=== PATIENT | male | born 1935 | race Caucasian/White ===

== ENCOUNTER 2020-12-17 09:05 | Outpatient (CLI) | payer MEDICARE, OTHER, SELFPAY ==
--- NOTE | 2020-12-17 09:23 | MR_ITS ---
WS: [id number] MRI HEAD WITHOUT CONTRAST TECHNIQUE: Sagittal T1, T2 axial, T2 axial FLAIR, axial and coronal T1 images, axial susceptibility w eighted imaging, axial diffusion weighted images, and coronal T2 images were obtained. CLINICAL INFORMATION: CONFUSION/VISUAL HALLUCINATIONS COMPARISON: None. FINDINGS: No evidence of restricted diffusion to suggest acute ischemia. Small amount of T2 shine through in th e left centrum semiovale. Moderate small vessel changes with moderate parenchymal volume loss. Multip le chronic lacunar infarcts in the cerebellum. Normal vascular flow voids at the skull base. No extra -axial fluid collections. No evidence of mass or mass effect. Paranasal sinuses and mastoid air cells are well aerated. Tiny focus of hemosiderin in the right lateral cerebellum. No other foci of hemosiderin. Normal optic chiasm and pituitary infundibulum. 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 MR/MR head wo con* [id number] IMPRESSION: 1. No evidence of restricted diffusion to suggest acute ischemia. 2. Moderate small vessel changes with moderate parenchymal volume loss. 3. 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 4. Small chronic focus of hemosiderin in the right lateral cerebellum. No othe r foci of hemosiderin. 5. 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
== END 2020-12-17 09:06 | disposition home or self-care (01) ==
PROVIDERS: PCP Family Medicine; Visit Provider Nurse Practitioner Family
DX: R41.0 Disorientation, unspecified (principal); R44.1 Visual hallucinations
CPT/HCPCS: 70551